=== PATIENT | female | born 2005 | race Caucasian/White ===

== ENCOUNTER 2023-03-02 19:53 | Emergency (ER) | payer OTHER ==
[2023-03-02 20:01] VITALS: BP 130/80
--- NOTE | 2023-03-02 20:31 | ED Physician Documentation ---
PD HPI HEENT - Stated complaint Stated Complaint: BILAT EAR PX - Chief complaint Chief Complaint: Heent - History obtained from History obtained from: Patient - Additional information Additional information: The pt comes to the ED for CC of bilateral ear pain for the past 2 days. No fevers/chills. Recent URI. No injury. No change in hearing. PD PAST MEDICAL HISTORY - Present Medications Home Medications: Ambulatory Orders Medication Instructions Recorded Confirmed Loratadine/Pseudoephedrine 1 each PO DAILY #7 tab 03/02/23 [Claritin-D 24 Hour Tablet] - Allergies Allergies/Adverse Reactions: Allergies Allergy/AdvReac Type Severity Reaction Status Date / Time Penicillins Allergy Hives Verified 03/02/23 19:56 PD ED PE NORMAL - Vitals Vital signs reviewed: Yes - General General: Alert and oriented X 3, No acute distress, Well developed/nourished - HEENT HEENT: Atraumatic, PERRL, EOMI, Ears normal, Moist mucous membranes - Neck Neck: Supple, no meningeal sign - Respiratory Respiratory: No respiratory distress - Derm Derm: Normal color, Warm and dry, No rash - Extremities Extremities: No deformity - Neuro Neuro: Alert and oriented X 3 - Psych Psych: Normal mood, Normal affect Results - Vitals Vitals: Oxygen O2 Source Room air PD Medical Decision Making - ED course Complexity details: considered differential, d/w patient ED course: The pt's ear exam was fairly benign, but she may have some pressure/fluid from Eustachian tube dysfunction, secondary to her recent URI. We have discussed that this condition is expected to be self-limited, but that the pt may benefit from a decongestant to help the tubes function better. We have discussed the usual indications for return. Departure - Departure Disposition: 01 Home, Self Care Clinical Impression: Acute otalgia Qualifiers: Laterality: bilateral Qualified Code(s): H92.03 - Otalgia, bilateral Condition: Stable Instructions: ED Otitis Media Serous Adult Prescriptions: Loratadine/Pseudoephedrine [Claritin-D 24 Hour Tablet] 1 each PO DAILY #7 tab Comments: Your ears appear to have a little fluid behind the eardrums but do not at all appear infected. Your eardrums are neither red nor bulging and the eardrums themselves do not appear thickened or inflamed. Most likely, you have some residual fluid and congestion of your eustachian tubes, the tubes that help equalize pressure between the inner ear and the sinuses. Between having a cold recently and flying recently, this is most likely exacerbated the fluid and pressure behind your eardrums. This will resolve on its own with time, but sometimes a decongestant is helpful to get the tubes open up and allow the pressure and fluid to drain out. A prescription for this has been electronically transmitted to the [facility] pharmacy in [place] your request. You may follow-up with your doctor back in [place] for further concerns, should your symptoms persist. Discharge Date/Time: 03/02/23 20:44
== END 2023-03-02 20:44 | disposition home or self-care (01) ==
LOC: ED 19:53
DX: H92.03 Otalgia, bilateral (principal)
CPT/HCPCS: 99281; 99283